=== PATIENT | male | born 1960 | race Caucasian/White ===

== ENCOUNTER → 2016-09-18 | Outpatient (CLI) | payer OTHER ==
[~2016-09-18] MED LIST: BP PILL; HYDROCODONE-APA1 T56 PO; MOBIC; NEXIUM PO; PHENERGAN PO; PRILOSEC; TRAZODONE HCL100 MG
--- NOTE | ~2016-09-18 | MR32 ---
[facility] A Service of [facility] & [facility] RADIOLOGY TEXT RESULTS PATIENT: ERMELINDA BARRON LOCATION: [facility] : 62 UNIT #: [id number] AGE: [address]: Panda Wilson MD SEX: M ORDER DR: [id number] [address] [address] [id number] O MR#: [id number] #: [id number] NAME: ERMELINDA BARRON : 1960 SEX: M STUDY DATE/TIME: 09/18/2016 12:05 UNIT: [facility] ROOM: STUDY DESCRIPTION: MR Cervical Wo Contrast Attending Physician: Panda Wilson M.D. Referring Physician: Panda Wilson M.D. Ordering Physician: Panda Wilson M.D. Primary Care Physician: David Hudson Pa-C MRI CENTER REPORT This report is preliminary unless electronic signature is present. EXAM MRI of the cervical spine. HISTORY Spinal stenosis; no known injury or surgery. Patient has neck pain, limited range of motion, wakes him up in the middle of the night. Right shoulder pain, worse for 2-3 months. COMMENT MRI of the cervical spine performed without contrast, using routine 1.5-T wide bore imaging technique. Plain film comparison is from 09/14/2016. There is mild reversal of the centrilobular. Endplate spondylosis is most prominent at C5-C6 and C6-C7, with loss of intervertebral disc height. Discs are desiccated in general, with milder endplate spondylosis and loss of disc height at the L4-L5 level. Bone marrow signal intensity is within normal limits, allowing for areas of marrow endplate degenerative change, also most apparent at C5-C6. There is no Chiari I malformation. At C2-C3, there is severe asymmetric left-sided facet degenerative change with severe left-sided foraminal narrowing, but no canal stenosis. There is a minor posterior disc bulge. At C3-C4, there is severe asymmetric right-sided facet degenerative change. There is a concentric disc bulge and probably uncovertebral osteophyte formation bilaterally. Severe hsxgo-[id number]-left-sided foraminal narrowing. Mild to moderate cord flattening and canal stenosis. At C4-C5, there is severe asymmetric right-sided facet degenerative change, milder left-sided facet degenerative change. There is an STS. [facility] A Service of [facility] & [facility] RADIOLOGY TEXT RESULTS PATIENT: ERMELINDA BARRON LOCATION: [facility] : 62 UNIT #: [id number] AGE: [address]: Panda Wilson MD SEX: M ORDER DR: intracanalicular, probably extradural mass lesion associated with the medial aspect of the right L4-L5 facet joint posterolateral to the cord. It measures at least 1.3 cm SI dimension x 1 cm AP dimension x 1.3 cm ML dimension. It is associated with thickening of the adjacent ligamentum flavum and is probably a large synovial cyst. It is of relatively low signal intensity on T2-weighted imaging and intermediate to lower in signal intensity on T1-weighted imaging. Possibility of a mass lesion is in the differential, and I would recommend correlation with postcontrast imaging to evaluate for possible enhancement, such as in the setting of a meningioma. This is felt less likely. Regardless, there is severe canal stenosis with displacement of the cord to the left side anterolaterally. There is also underlying degenerative disc disease and endplate spondylosis, which contributes to the cord flattening and canal stenosis. There is severe impingement upon the right C4-C5 foraminal entry zone, as well as the right side of the canal. There is also uncovertebral osteophyte formation, worse to the right side, with severe right C4-C5 foraminal compromise. At C5-C6, there is mild facet degenerative change, moderate concentric desiccated disc osteophyte complex with uncovertebral osteophyte formation. Severe bilateral foraminal impingement. Moderate to severe cord flattening and canal stenosis, worse to the left of midline. At C6-C7, there is mild facet degenerative change, mild to moderate concentric disc osteophyte complex with some uncovertebral osteophyte formation. Mild left-sided cord flattening and canal stenosis, fairly severe left and mild right-sided foraminal narrowing. At C7-T1, there is mild concentric disc bulge, bilateral facet degenerative change, moderate to severe right and mild to moderate left. There is moderate left and milder right-sided foraminal impingement. Cord signal intensity is abnormal at the level of C4-C5 and probably extending to the level of C3 superiorly and C6 inferiorly. I suspect this is a manifestation of compressive myelopathy. Again, postcontrast imaging is recommended. IMPRESSION Severe disease with details provided above. At this time, I would recommend the patient be further evaluated with contrast-enhanced imaging. 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 Differential consideration would include neoplastic disease such as a meningioma. Though this is felt less likely, I would recommend correlation with contrast-enhanced imaging for further characterization. This will also better characterize the cord signal abnormality, discussed above. There is multilevel severe cord flattening, canal stenosis and foraminal STS. [facility] A Service of [facility] RADIOLOGY TEXT RESULTS PATIENT: ERMELINDA BARRON LOCATION: [facility] : 62 UNIT #: [id number] AGE: [address]: Panda Wilson MD SEX: M ORDER DR: la. Please refer to the detailed discussion above. STAT * RESULT Dictated by... Alba Dee M.D. THIS IS AN ELECTRONICALLY VERIFIED REPORT Alba Dee M.D. at 09/19/2016 5:26 PM LB/ashish TD: 09/19/2016 16:03 JOB #: [id number] MRI CENTER REPORT Page 1 of 1
== END | disposition home or self-care (01) ==
LOC: SMRI 11:16
DX: M48.02 Spinal stenosis, cervical region (principal); M50.83 Other cervical disc disorders, cervicothoracic region; R93.7 Abnormal findings on diagnostic imaging of other parts of musculoskeletal system; M25.78 Osteophyte, vertebrae
CPT/HCPCS: 72141

== ENCOUNTER → 2016-10-02 | Outpatient (CLI) | payer OTHER ==
--- NOTE | ~2016-10-02 | MR31 ---
[facility] A Service of [facility] RADIOLOGY TEXT RESULTS PATIENT: ERMELINDA BARRON LOCATION: [facility] : 62 UNIT #: [id number] AGE: [address]: Yoan Pereyra MD SEX: M ORDER DR: [id number] [address] [address] [id number] O MR#: [id number] Acc #: [id number] NAME: ERMELINDA BARRON : 1960 SEX: M STUDY DATE/TIME: 10/02/2016 16:08 UNIT: [facility] ROOM: STUDY DESCRIPTION: MR Cervical WWo Contrast Attending Physician: Yoan Pereyra M.D. Referring Physician: Yoan Pereyra M.D. Ordering Physician: Yoan Pereyra M.D. Primary Care Physician: David Hudson Pa-C MRI CENTER REPORT This report is preliminary unless electronic signature is present. EXAM MRI of the cervical spine with and without contrast HISTORY Characterize intracanalicular mass seen on noncontrast study 09/19/2016. Please refer to the original report also. The patient has increasing neck pain and limited range of motion into the right upper extremity for 3 months. COMMENTS MRI of the cervical spine performed with precontrast axial T1-weighted imaging and postcontrast sagittal and axial T1-weighted imaging on a 1.5T wide bore system. Contrast dose given is 13 mL MultiHance. Noncontrast comparison study 09/18/2016. FINDINGS The lesion documented on that examination in the right posterolateral canal, extramedullary location is redemonstrated. On the precontrast imaging, it is relatively decreased in signal intensity when compared to cord and after contrast administration, there is rim like enhancement with central nonenhancement. Lesion measures about 1.3 cm SI dimension, 1.5 cm ML dimension, 0.5 cm AP dimension not appreciably changed from prior. The signal characteristics and enhancement pattern are consistent with a synovial cyst rather than a meningioma. It appears to be associated with the right side ligamentum flavum and medial aspect of the right-sided C4-C5 facet joint. Again there is mass effect upon the cervical cord with displacement of the cord left side anterolaterally. This is noted previously, is not changed, and please refer back to the prior description. There is no pathologic cord enhancement and the signal abnormality seen on the earlier study is therefore again consistent with compressive myelopathy. Severe canal stenosis is present. [facility] A Service of [facility] RADIOLOGY TEXT RESULTS PATIENT: ERMELINDA BARRON LOCATION: [facility] : 62 UNIT #: [id number] AGE: [address]: Yoan Pereyra MD SEX: M ORDER DR: IMPRESSION The mass lesion seen on the noncontrast study right side posterolaterally extramedullary intracanalicular level of C4-5 has imaging characteristics consistent with a synovial cyst. There is no pathologic cord enhancement, and the cord signal changes are probably on the basis of compressive myelopathy in the setting of severe cord compression and canal stenosis. Please refer back to the original noncontrast report to the multilevel description of findings. Dictated by... Alba Dee M.D. THIS IS AN ELECTRONICALLY VERIFIED REPORT Alba Dee M.D. at 10/03/2016 5:39 PM LB/anuj TD: 10/03/2016 14:31 JOB #: [id number] MRI CENTER REPORT Page 1 of 1
== END | disposition home or self-care (01) ==
LOC: SMRI 15:27 → SCT 15:40 → SMRI 15:40
DX: G95.20 Unspecified cord compression (principal); M89.9 Disorder of bone, unspecified
CPT/HCPCS: 72156; A9581